=== PATIENT | female | born 1970 | race Caucasian/White ===

== ENCOUNTER → 2018-07-09 09:59 | Outpatient (CLI) | payer OTHER, SELFPAY ==
--- NOTE | 2018-07-09 10:05 | CT_ITS ---
STUDY: CT BRAIN WITH AND WITHOUT CONTRAST REASON FOR EXAM: Female, 47 years old. [place]clap headache with peripheral visual disturbance bilaterally. No hx migraines. HTN-rx controlled. RADIATION DOSAGE (If Supplied By Facility): CTDIvol = ( 44.99 ) mGy, DLP = ( 1479.73 ) mGycm TECHNIQUE: Transaxial CT imaging of the brain was performed pre and post contrast administration. The examination was performed with intravenous administration of Isovue 370 50ml IV. Individualized dose optimization techniques were used for this CT. COMPARISON: None. FINDINGS: Normal soft tissue structures. Normal calvarium. Normal size ventricles and extra-axial spaces for the patient's age. Normal white matter tracts of the cerebral hemispheres. Normal basal ganglia and thalami. Normal brainstem. Normal cerebellum. There is no intracranial hemorrhage. There are no findings of an acute ischemic infarction. Normal visualized paranasal sinuses. CT/Brain/Head W/WO Contrast IMPRESSION: Normal unenhanced and enhanced CT scan of the brain. Electronically Signed: Oumar Monroy MD at 10:45 EDT Tel , Service support ,
== END ==
PROVIDERS: Family Provider Student in an Organized Health Care Education/Training Program; PCP Student in an Organized Health Care Education/Training Program; Referring Provider Student in an Organized Health Care Education/Training Program; Visit Provider Student in an Organized Health Care Education/Training Program
DX: G44.53 Primary thunderclap headache (principal); H53.8 Other visual disturbances; F05 Delirium due to known physiological condition
CPT/HCPCS: 70470; Q9967